=== PATIENT | male | born 1995 | race Caucasian/White ===

== ENCOUNTER 2018-09-20 10:52 | Inpatient (IN) | payer BC ==
--- NOTE | 2018-09-20 11:15 | ED ---
Psychiatric Complaint - HPI Summary HPI Summary: This patient is a 22 year old M referred to [facility] by his psychiatrist accompanied by family with a chief complaint of manic episodes that began approximately three days ago. The patient rates the pain 0/10 in severity. Symptoms aggravated by nothing. Symptoms alleviated by nothing. Patient reports difficulty sleeping, SI (without plan), and an out of body experience. - History Of Current Complaint Chief Complaint: EDMentalHealth Time Seen by Provider: 09/20/18 11:04 Hx Obtained From: Patient Onset/Duration: Sudden Onset, Lasting Days, Still Present Timing: Constant Severity Initially: Mild Severity Currently: Mild Character: Manic Aggravating Factor(s): Nothing Alleviating Factor(s): Nothing Associated Signs And Symptoms: Positive: Sleep Disturbance Related History: Positive For: Prior Psychiatric Issues Has Suicidal: Reports: Thoughts - Allergies/Home Medications Allergies/Adverse Reactions: Allergies Allergy/AdvReac Type Severity Reaction Status Date / Time No Known Allergies Allergy Verified 09/20/18 11:01 Home Medications: Home Medications LORazepam TAB(*) [Ativan 1 MG TAB (*)] 1 mg PO TID PRN 09/20/18 [History Confirmed 09/20/18] Lurasidone(*) [Latuda] 80 mg PO BEDTIME 09/20/18 [History Confirmed 09/20/18] Methylphenidate ER TAB* [Concerta ER TAB*] 36 mg PO DAILY 09/20/18 [History Confirmed 09/20/18] PARoxetine HCL TAB* [Paxil TAB*] 25 mg PO DAILY 09/20/18 [History Confirmed 05/29] PMH/Surg Hx/FS Hx/Imm Hx Previously Healthy: No Opthamlomology History: Denies: Hx Legally Blind EENT History: Denies: Hx Deafness Psychiatric History: Reports: Hx Depression Infectious Disease History: No Infectious Disease History: Denies: Traveled Outside the [place] in Last 30 Days - Family History Known Family History: Positive: Other - Depression. Anxiety - Social History Occupation: Unemployed Lives: With Family Alcohol Use: None Hx Substance Use: No Substance Use Type: Reports: None Hx Tobacco Use: No Smoking Status (MU): Never Smoked Tobacco Review of Systems Negative: Fever Psychological: Other - Positive maritza episodes, SI, difficulty sleeping, and " out of body" experience All Other Systems Reviewed And Are Negative: Yes Physical Exam - Summary Physical Exam Summary: VITAL SIGNS: Reviewed. GENERAL: Patient is a well-developed and nourished male who is lying comfortable in the stretcher. Patient is not in any acute respiratory distress. HEAD AND FACE: No signs of trauma. No ecchymosis, hematomas or skull depressions. No sinus tenderness. EYES: PERRLA, EOMI x 2, No injected conjunctiva, no nystagmus. EARS: Hearing grossly intact. Ear canals and tympanic membranes are within normal limits. MOUTH: Oropharynx within normal limits. NECK: Supple, trachea is midline, no adenopathy, no JVD, no carotid bruit, no c- spine tenderness, neck with full ROM. CHEST: Symmetric, no tenderness at palpation LUNGS: Clear to auscultation bilaterally. No wheezing or crackles. CVS: Regular rate and rhythm, S1 and S2 present, no murmurs or gallops appreciated. ABDOMEN: Soft, non-tender. No signs of distention. No rebound no guarding, and no masses palpated. Bowel sounds are normal. EXTREMITIES: FROM in all major joints, no edema, no cyanosis or clubbing. NEURO: Alert and oriented x 3. No acute neurological deficits. Speech is normal and follows commands. SKIN: Dry and warm PSYCH: Depressed, quiet. No homicidal thoughts or plan. No signs of psychosis or pressure speech. No tangential speech. Triage Information Reviewed: Yes Vital Signs On Initial Exam: Initial Vitals Temp Pulse Resp BP Pulse Ox 97.9 F 106 18 138/80 97 09/20/18 10:54 09/20/18 10:54 09/20/18 10:54 09/20/18 10:54 09/20/18 10:54 Vital Signs Reviewed: Yes Diagnostics - Vital Signs Vital Signs Temp Pulse Resp BP Pulse Ox 09/20/18 10:54 97.9 F 106 18 138/80 97 - Laboratory Result Diagrams: 09/20/18 10:33 09/20/18 10:33 Lab Statement: Any lab studies that have been ordered have been reviewed, and results considered in the medical decision making process. Course/Dx - Course Assessment/Plan: Blood work w/o a significant abnormality. He is medically cleared. He is awaiting for a MHE. Patient is hemodynamically stable and A+O x 3. Dr. Doyle from psychiatry assessed the patient and he recommends for the patient to be admitted to his services. Diagnosis depression. - Differential Dx/Clinical Impression Differential Diagnosis/HQI/PQRI: Positive: Acute Psychosis, Anxiety, Depression Provider Diagnosis: Depression Discharge - Sign-Out/Discharge Documenting (check all that apply): Patient Departure - Admit to [facility] Patient Received Moderate/Deep Sedation with Procedure: No - Discharge Plan Condition: Stable Disposition: ADMITTED TO [facility] - Billing Disposition and Condition Condition: STABLE Disposition: Admitted to [facility] - Attestation Statements Document Initiated by Shannanibe: Yes Documenting Scribe: Jennifer Cloud Provider For Whom Teressa is Documenting (Include Credential): Dr. Gary Carrington MD Scribe Attestation: Jennifer Galvan scribed for Dr. Gary Carrington MD on 09/20/18 at 2057. Scribe Documentation Reviewed: Yes Provider Attestation: The documentation as recorded by the Jennifer chaudhary accurately reflects the service I personally performed and the decisions made by me, Dr. Gary Carrington MD Status of Scribe Document: Viewed
[2018-09-20 11:39] LABS: Urine Appearance Clear; Urine Bilirubin Negative (Negative); Urine Blood Negative (Negative); Urine Color Yellow; Urine Glucose Negative (Negative); Urine Ketones Negative (Negative); Urine Nitrite Negative (Negative); Urine Protein Negative (Negative); Urine Specific Gravity 1.023 (1.010-1.030); Urine Urobilinogen Negative (Negative)
[2018-09-20 11:44] LABS: ABS Basophils 0.1 10^3/ul (0-0.2); ABS Eosinophils 0 10^3/ul (0-0.6); ABS Lymphocytes 1.8 10^3/ul (1.0-4.8); ABS Monocytes 0.6 10^3/ul (0-0.8); ABS Neutrophils 6.7 10^3/ul (1.5-7.7); ABS Nucleated RBC 0 10^3/ul; Eosinophil % 0.3 %; Hematocrit 45 % (42-52); Hemoglobin 15.6 g/dl (14.0-18.0); Lymphocyte % 19.9 %; Mean Corpuscular HGB Conc 35 g/dl (31-36); Mean Corpuscular Hemoglobin 28 pg (27-31); Mean Corpuscular Volume 81 fL (80-94); Mean Platelet Volume 7.9 fL (7.4-10.4); Nucleated Red Blood Cells % 0; Platelet Count 296 10^3/ul (150-450); Red Blood Count 5.55 10^6/ul (4.00-5.40); Red Cell Distribution Width 14 % (10.5-15); White Blood Count 9.2 10^3/ul (3.5-10.8)
[2018-09-20 11:57] LABS: Barbiturates Urine Screen None Detected (None Detect); Benzodiazepine Urine Screen None Detected (None Detect); Urine Cannabinoids Screen None Detected (None Detect)
[2018-09-20 12:01] LABS: ALT 42 U/L (7-52); AST 16 U/L (13-39); Albumin/Globulin Ratio 1.7 (1-3); Alkaline Phosphatase 80 U/L (34-104); Anion Gap 10 mmol/L (2-11); BUN/Creatinine Ratio 10.3 (8-20); Blood Urea Nitrogen 9 mg/dL (6-24); CO2 Carbon Dioxide 25 mmol/L (22-32); Calcium 9.9 mg/dL (8.6-10.3); Chloride 103 mmol/L (101-111); EGFR African American 130.4 (>60); EGFR Non-African American 107.8 (>60); Globulin 2.9 g/dL (2-4); Glucose 106 mg/dL (70-100); Sodium 138 mmol/L (135-145); Total Protein 7.9 g/dL (6.4-8.9)
[2018-09-20 12:34] LABS: Acetaminophen < 15 mcg/mL; Alcohol < 10 mg/dL (<10); Salicylate < 2.50 mg/dL (<30)
[2018-09-20 12:46] LABS: TSH (Thyroid Stimulating Horm) 0.64 mcIU/mL (0.34-5.60)
[2018-09-20] MEDS ORDERED: Al Hydrox/Mg Hydrox/Simet LIQ* 30 ML UDC PO PRN (19:54)
[2018-09-20] MEDS ORDERED: Acetaminophen TAB* 325 MG PO PRN (19:54)
[2018-09-21] MEDS: Vitamin THERAPEUTIC TAB PO SCH (09:39)
--- NOTE | 2018-09-21 11:49 | PN ---
[facility]: Group Therapy Note - Service Type Service Type: 17964 Group Psychotherapy - Cognitive Behavioral Group Therapy ( CBT):Patient was attentive and participatory in CBT programming this morning, and remained in good behavioral control. Patient expressed positive insights regarding relevant treatment interventions and goals.
--- NOTE | 2018-09-21 14:09 | HP ---
H&P (Free Text) History and Physical: Justification for admission: Immediate Safety. CC " I have not slept." The patient was brought to [facility] by self after the recommendation by his Psychiatrist Dr. Carter who was concerned that he might have possible leona. He said that he has not slept in 5 days. He reported that he was tried on many medications and had different reactions such as not sleeping, restlessness. He said this began about 3 weeks ago at what time he was started on Abilify and discontinued shortly after. He describes that over the last 2 weeks he felt that he had a 2 week long panic attack. He reported that he also stopped taking concerta and paxil a few days ago. He denied nausea , muscle stiffness or fever. He said I also have touretts where I will move my head and eyes. He denied access to firearms or stockpiles of medications. He reported adequate appetite. He reported having thoughts of suicide 2 days ago and remarked that he did not have a plan for ending his life. The patient currently denied suicidal and or homicidal ideation intent or plan. The patient denied auditory and/ or visual hallucinations. Bipolar Reported having many ideas at once. Reported having the decreased need to sleep for days. Reported having the decreased need to sleep for days. Denied increased talkativeness where no one can interrupt. He reported feeling irritable and feeling restless. He denied an increase in intensity in goal directed activities. He denied impulsive risky sexual encounters. Denied spending money recklessly , going on spending sprees wiping out savings. Denied impulsively traveling out of town or country, having super oleary, and unrealistic wealth or fame. MDD He reported feeling depressed. Denied having crying spells , feeling empty inside, feelings of hopelessness or worthless. Denied unintentional weight loss or appetite. Reported interruption of sleep or feeling tired throughout the day. He reported that when he is depressed he has a loss of energy or lack of motivation to complete tasks. He denied overwhelming feelings of guilt. Anxiety He reported having symptoms of anxiety such as having times where heart feels that it is beating out of chest , sweaty palms, or shallow breathing. Psychosis Does not endorse hearing things that other people do not hear or seeing things other people do not see. Denied feeling that TV is making references. Denied feeling that people are spying on him , following him , or reading his thoughts. Phobias: Patient denied having excessive fear of a particular thing or situation. Eating disorders: Patient denied having excessive eating habits or feelings of guilt after eating. Denied repeated episodes of self induced vomiting after eating. PTSD- Denied flashbacks, nightmares and avoidance of a prior traumatic event. PAST PSYCHIATRIC HISTORY: Prior Diagnosis : Tourettes Syndrome, ADHD, Major depressive Disorder History of past Psychiatric Hospitalizations: At age 11 History of past suicide/homicide attempts : No past suicide attempts. He denied past homicidal incidents. Outpatient follow-up: Dr. Carter Psychiatrist Medications: Past trials of medications include latuda, abilify, effexor, haldol, zoloft, paxil, rexulti, cymbalta, concerta. FAMILY HISTORY: - Suicide: Denied suicide in the family - Mental illness: Grandfather and Cousin history of Depression - Substance abuse: Sister alcohol abuse SUBSTANCE ABUSE HISTORY: She denied using tobacco, heroin and cocaine other illicit substances. She denied abusing pills not prescribed to him. She denied past Substance abuse treatment. SOCIAL HISTORY: - Childhood: He was born and raised in [place], [place]. Lives in Single and no children. Works at [employer]. Lives with Mother Vicky Aguilera in [place]. Denied legal or history. No history of trauma or abuse. PAST MEDICAL HISTORY: Denied heart disease, Diabetes, cancer and/ or other medical conditions. Denied sudden in family. - Allergies: Denied drug or other allergies. Physical Exam: Please see ED note Mental Status Exam on Admission APPEARANCE : 22 year old who appears stated age. Patient is not malodourous, and appears to have fair hygiene and grooming. BEHAVIOR: Cooperative , calm EYE CONTACT: Fair PSYCHOMOTOR ACTIVITY: No psychomotor agitation or retardation. MOVEMENTS: No abnormal movements observed. SPEECH : Normal rate, rhythm, volume and tone. MOOD : "anxious " AFFECT : Constricted THOUGHT PROCESS: formulated and organized in a logical, linear goal directed manner. No flight of ideas THOUGHT CONTENT: no delusions, preoccupations, obsessions, phobias or preoccupations. PERCEPTION: No current auditory or visual hallucinations. Doesnt appear to be responding to internal cues. No evidence of depersonalization , de-realization, or illusions SUICIDALITY Denied suicidal ideation, intent or plan. HOMICIDALITY Denied homicidal ideation, intent or plan. ORIENTATION: Oriented to self, location, and time. Diagnosis on Admission: Tourettes Syndrome, ADHD, Major depressive Disorder Assessment: 22year old with history of Tourettes Syndrome, ADHD, Major depressive Disorder came to the hospital and was admitted to the BSU at [facility]. Plan # Justification for Admission: For immediate safety per outlined in the [facility] Code. #Patient evaluated in ED and was determined by the emergency room Physician to be medically stable for admission to the BSU. # Voluntary admission. The patient requires inpatient admission at this time to assure safety, receive treatment and work toward stabilization. # Labs ordered: CBC, CMP, UDS, TSH, HbA1c, TSH, #Admit to BSU, Q15 minute observation. Start regular diet. Encourage participation in activities on the milieu. # Obtain collateral information from Psychiatrist Dr. Carter [phone] and Mother Vicky Aguilera [phone]. #Start Risperdal 1mg at bedtime for tics. #Start Ambien 5mg at bedtime for sleep #Start concerta 27mg daily for ADHD #MMPI # Will consider starting mood stabilizer once more collateral is obtained, a diagnosis is more transparent, and response to other treatment is observed. # Collaboration with Social Work to work toward discharge planning. #Collateral from Psychiatrist that revealed his history of medications and concern that he may have bipolar I disorder. He has never been on a mood stabilizer. #Goals before discharge include: Increase sleep and stabilize mood #EKG unremarkable Patient has Irritable mood requiring 3/4 components needed to meet Bipolar I disorder. Will obtain further history to confirm or refute diagnosis. The risks, benefits, and alternative treatment options were discussed as well as of the risks of refusing treatment. After this discussion and an acknowledgement of this understanding was made. A risk benefit assessment of treatment was considered and discussed with the patient. When comparing the risks of treatment with the dangers of current clinical presentation. The benefits of treatment outweigh the treatment risks at this time. Risks of behavioral changes, Serotonin syndrome, metabolic risks and NMS were among some of the risks discussed.
[2018-09-21] MEDS: Zolpidem TAB* 5 MG PO SCH (20:51)
[2018-09-21] MEDS: risperiDONE TAB* 1 MG PO SCH (20:51)
[2018-09-21] MEDS: clonazePAM TAB(*) 0.5 MG PO PRN (23:09)
[2018-09-22] MEDS: Vitamin THERAPEUTIC TAB PO SCH (08:44)
[2018-09-22] MEDS: Methylphenidate ER 27 MG TAB PO SCH (08:44)
--- NOTE | 2018-09-22 09:03 | PN ---
Subjective - Subjective Date of Service: 09/22/18 Service Type: 29652 Hosp care 25 min moderate complexity Subjective: Nursing Report: Patient was visible on unit, no chemical restraints. Slept overnight without incident. Attending group activities. CC: "I did get some sleep overnight Patient was seen and evaluated in the day room. He was observed in the day room eating breakfast. The patient reported he feels safe on the unit and is interacting with peers. He reported having an adequate appetite and sleep around 5 hours. The patient reports attending and participating in day groups. Per nursing no behavioral issues or overnight events reported. Patient reported that he is tolerating medications without side effects. He denied suicidal ideation, intent or plan. He denied homicidal ideation intent or plan. He denied auditory and or visual hallucinations. Contact was made with his mother who stated he has not been sleeping since being off medications, having crying spells and feeling irritable. She reported that paxil and zoloft worked best for him in the past for anxiety and depression. She reported that he did not have a good response to abilify. Objective - Appearance Dysmorphic Features: No Hygiene: Normal Grooming: Fairly Well Kept - Behavior Psychomotor Activities: Normal Exhibits Abnormal Movement: No - Attitude and Relatedness Attitude and Relatedness: Cooperative Eye Contact: Fair - Speech Quality: Unpressured Latencies: Long Quantity: Appropriate - Mood Patient's Decription of Mood: "Fine" - Affect Observed Affect: Constricted Affect Consistent with: Euthymia - Thought Process Patient's Thought Process: Goal Directed Thought Content: No Passive Wish, No Suicidal Planning, No Homicidal Ideation, No Paranoid Ideation - Sensorium Experiencing Hallucinations: No, Sensorium is Clear Type of Hallucinations: Visual: No, Auditory: No, Command: No - Level of Consciousness Level of Consciousness: Alert Orientation: Yes Intact, Yes Orientated to Time, Yes Orientated to Place, Yes Orientated to Person - Impulse Control Impulse Control: Poor - Insight and Judgement Insight and Judgement: Fair - Group Participation Particating in Group Activities: Yes - Medication Management Medication Management Adherence: Yes Plan - Plan Treatment Plan: Name: GARRISON ARMSTRONG Birthdate: 1995 [id number] # Voluntary admission. The patient requires inpatient admission at this time to assure safety, receive treatment and work toward stabilization. #Q30 minute observation with staff pass #Continue Risperdal 1mg at bedtime for tics. #Restart Paxil 10mg po daily #Continue Ambien 5mg at bedtime for sleep #Continue concerta 27mg daily for ADHD #klonopin 0.5mg PRN #Start guanfacine 1mg at 2100 #MMPI completed # Collaboration with Social Work to work toward discharge planning. Tentative Discharge Friday. # Hypomania and leona considered in differential and criteria is not fully met. Past medication trials include latuda, abilify, effexor, haldol, zoloft, paxil, rexulti, celexa, cymbalta, concerta. #Goals before discharge include: Increase sleep and stabilize mood. Continued Medication Management: Start Medication Medications: Current Medications Acetaminophen (Tylenol Tab*) 650 mg PO Q4H PRN PRN Reason: PAIN or TEMP > 101 F Al Hydrox/Mg Hydrox/Simethicone (Maalox Plus*) 30 ml PO Q4H PRN PRN Reason: INDIGESTION Clonazepam (Klonopin Tab(*)) 0.5 mg PO BID PRN PRN Reason: ANXIETY Last Admin: 09/21/18 23:09 Dose: 0.5 mg Methylphenidate HCl (Concerta) 27 mg PO DAILY [facility] Last Admin: 09/22/18 08:44 Dose: 27 mg Multivitamins (Theragran Tab*) 1 tab PO DAILY [facility] Last Admin: 09/22/18 08:44 Dose: 1 tab Risperidone (Risperdal*) 1 mg PO BEDTIME [facility] Last Admin: 09/21/18 20:51 Dose: 1 mg Zolpidem Tartrate (Ambien Tab*) 5 mg PO BEDTIME [facility] Last Admin: 09/21/18 20:51 Dose: 5 mg - Discharge Plan Discharge Plan: Inpatient Hospitalization
[2018-09-22] MEDS ORDERED: GUANFACINE 2 MG PO SCH ×2 (11:00→21:00)
[2018-09-22 12:32] LABS: HDL Cholesterol 40.2 mg/dL
[2018-09-22] MEDS: PARoxetine HCL TAB* 10 MG PO SCH (12:40)
[2018-09-22] MEDS: Zolpidem TAB* 5 MG PO SCH (20:47)
[2018-09-22] MEDS: risperiDONE TAB* 1 MG PO SCH (20:47)
[2018-09-22] MEDS ORDERED: Guanfacine ER * (NF) 2 MG TAB.ER.24H PO SCH (21:00)
[2018-09-22] MEDS ORDERED: guanFACINE TAB* 1 MG PO SCH (21:00)
[2018-09-22] MEDS: clonazePAM TAB(*) 0.5 MG PO PRN (23:45)
[2018-09-23] MEDS: PARoxetine HCL TAB* 10 MG PO SCH (09:58)
[2018-09-23] MEDS: Vitamin THERAPEUTIC TAB PO SCH (09:58)
[2018-09-23] MEDS: Methylphenidate ER 27 MG TAB PO SCH (09:59)
--- NOTE | 2018-09-23 12:28 | PN ---
Subjective - Subjective Date of Service: 09/23/18 Service Type: 19114 Hosp care 25 min moderate complexity Subjective: Nursing Report: Patient was visible on unit, no chemical restraints. Slept overnight without incident. Attending group activities. CC: "I am anxious Patient was seen and evaluated in his room. The patient reported he feels safe on the unit and is interacting with peers. He reported having an adequate appetite and sleep some overnight. The patient said that he doesnt want risperdal because he did not tolerate it when he was younger. The patient reports attending and participating in some day groups. Per nursing no behavioral issues or overnight events reported. Patient reported that he responds well to klonopin. He denied suicidal ideation, intent or plan. He denied homicidal ideation intent or plan. He denied auditory and or visual hallucinations. Patient reports anxiety around nighttime. Objective - Appearance Appearance: Obese Dysmorphic Features: No Hygiene: Normal Grooming: Well Kept - Behavior Psychomotor Activities: Normal Exhibits Abnormal Movement: No - Attitude and Relatedness Attitude and Relatedness: Cooperative Eye Contact: Fair - Speech Quality: Unpressured Latencies: Normal Quantity: Appropriate - Mood Patient's Decription of Mood: "Good" - Affect Observed Affect: Constricted Affect Consistent with: Dysphoria - Thought Process Patient's Thought Process: Goal Directed Thought Content: No Passive Wish, No Suicidal Planning, No Homicidal Ideation, No Paranoid Ideation - Sensorium Experiencing Hallucinations: No, Sensorium is Clear Type of Hallucinations: Visual: No, Auditory: No, Command: No - Level of Consciousness Level of Consciousness: Alert Orientation: Yes Intact, Yes Orientated to Time, Yes Orientated to Place, Yes Orientated to Person - Impulse Control Impulse Control: Intact - Insight and Judgement Insight and Judgement: Fair - Group Participation Particating in Group Activities: Yes - Medication Management Medication Management Adherence: Yes Assessment - Assessment Clinical Impression: 22year old with history of Tourettes Syndrome, ADHD, Major depressive Disorder came to the hospital and was admitted to the BSU at [facility]. Main complaints include sleep and anxiety. Plan - Plan Treatment Plan: Name: GARRISON ARMSTRONG Birthdate: 1995 [id number] # Voluntary admission. The patient requires inpatient admission at this time to assure safety, receive treatment and work toward stabilization. #Q30 minute observation with staff pass #D/C Risperdal #Increase Paxil 30mg po daily #D/C Ambien #Increase concerta 36mg daily for ADHD #Start klonopin 1mg QHS #Start propranolol 10mg BID #MMPI completed indicating more depression parameters # Collaboration with Social Work to work toward discharge planning. Tentative Discharge Friday. #EKG unremarkable #Goals before discharge include: Increase sleep and decrease anxiety Vital Signs Temp Pulse Resp BP Pulse Ox 98.6 F 96 16 124/74 100 09/23/18 07:43 09/23/18 07:43 09/23/18 12:51 09/23/18 07:43 09/23/18 07:43 Sodium 138 mmol/L (135-145) 09/20/18 10:33 Potassium 4.0 mmol/L (3.5-5.0) 09/20/18 10:33 BUN 9 mg/dL (6-24) 09/20/18 10:33 Creatinine 0.87 mg/dL (0.67-1.17) 09/20/18 10:33 Hemoglobin A1c 5.0 % (4.0-5.6) 09/22/18 11:56 Calcium 9.9 mg/dL (8.6-10.3) 09/20/18 10:33 AST 16 U/L (13-39) 09/20/18 10:33 ALT 42 U/L (7-52) 09/20/18 10:33 Triglycerides 150 mg/dL 09/22/18 11:56 Cholesterol 191 mg/dL 09/22/18 11:56 LDL Cholesterol 121 mg/dL 09/22/18 11:56 Continued Medication Management: Different Medication Medications: Current Medications Acetaminophen (Tylenol Tab*) 650 mg PO Q4H PRN PRN Reason: PAIN or TEMP > 101 F Al Hydrox/Mg Hydrox/Simethicone (Maalox Plus*) 30 ml PO Q4H PRN PRN Reason: INDIGESTION Clonazepam (Klonopin Tab(*)) 0.5 mg PO BID PRN PRN Reason: ANXIETY Last Admin: 09/22/18 23:45 Dose: 0.5 mg Guanfacine HCl (Tenex Tab*) 1 mg PO BEDTIME [facility] Last Admin: 09/22/18 20:47 Dose: 1 mg Methylphenidate HCl (Concerta) 27 mg PO DAILY [facility] Last Admin: 09/23/18 09:59 Dose: 27 mg Multivitamins (Theragran Tab*) 1 tab PO DAILY [facility] Last Admin: 09/23/18 09:58 Dose: 1 tab Paroxetine HCl (Paxil Tab*) 10 mg PO DAILY [facility] Last Admin: 09/23/18 09:58 Dose: 10 mg Risperidone (Risperdal*) 1 mg PO BEDTIME [facility] Last Admin: 09/22/18 20:47 Dose: 1 mg Zolpidem Tartrate (Ambien Tab*) 5 mg PO BEDTIME [facility] Last Admin: 09/22/18 20:47 Dose: 5 mg - Discharge Plan Discharge Plan: Inpatient Hospitalization
[2018-09-23] MEDS ORDERED: PARoxetine HCL TAB* 20 MG PO ONE (12:45)
[2018-09-23] MEDS: Propranolol TAB* 10 MG PO SCH ×2 (14:40→20:57)
--- NOTE | 2018-09-23 16:22 | PN ---
BSU: Group Therapy Note - Service Type Service Type: 18014 Group Psychotherapy - Group Participation Patient Participating in Group: Yes Level of Group Participation: Spontaneously Participate Relatedness to Group: Other - Additional Group Comments Group Comments: Jairo was pleasant and participatory. He engaged well in the group and understood the material well.
[2018-09-23] MEDS: clonazePAM TAB(*) 1 MG PO SCH (20:57)
[2018-09-24] MEDS: Methylphenidate ER TAB* 18 MG PO SCH (08:47)
[2018-09-24] MEDS: Propranolol TAB* 10 MG PO SCH ×2 (08:47→20:27)
[2018-09-24] MEDS: PARoxetine HCL TAB* 10 MG PO SCH (08:47)
[2018-09-24] MEDS: Vitamin THERAPEUTIC TAB PO SCH (08:47)
--- NOTE | 2018-09-24 10:34 | PN ---
Subjective - Subjective Date of Service: 09/24/18 Service Type: 00222 Hosp care 35 min high complexity Subjective: Nursing Report: Patient was visible on unit, no chemical restraints. Slept overnight without incident. Attending group activities. CC: "I slept well overnight Patient was seen and evaluated in the comfort room. The patient reported he feels safe on the unit and is interacting with peers. He reported no anxiety overnight. He reported having an adequate appetite and sleep. The patient reports attending and participating in some day groups. Per nursing no behavioral issues or overnight events reported. He denied suicidal ideation, intent or plan. He denied homicidal ideation intent or plan. He denied auditory and or visual hallucinations. Patients goals include going back to school for computer science. He denied past trauma and endorsed having a good childhood. Objective - Appearance Dysmorphic Features: No Hygiene: Normal Grooming: Fairly Well Kept - Behavior Psychomotor Activities: Normal Exhibits Abnormal Movement: No - Attitude and Relatedness Attitude and Relatedness: Appropriate Eye Contact: Fair - Speech Quality: Unpressured Latencies: Normal Quantity: Appropriate - Mood Patient's Decription of Mood: "Okay" - Affect Observed Affect: Non-labile Affect Consistent with: Euthymia - Thought Process Patient's Thought Process: Goal Directed Thought Content: No Passive Wish, No Suicidal Planning, No Homicidal Ideation, No Paranoid Ideation - Sensorium Experiencing Hallucinations: No, Sensorium is Clear Type of Hallucinations: Visual: No, Auditory: No, Command: No - Level of Consciousness Level of Consciousness: Alert Orientation: Yes Intact, Yes Orientated to Time, Yes Orientated to Place, Yes Orientated to Person - Impulse Control Impulse Control: Tenuous - Insight and Judgement Insight and Judgement: Fair - Group Participation Particating in Group Activities: Yes - Medication Management Medication Management Adherence: Yes Assessment - Assessment Merits Inpatient Hospitalization: For Stabilization Clinical Impression: 22year old with history of Tourettes Syndrome, ADHD, Major depressive Disorder came to the hospital and was admitted to the BSU at [facility]. Main complaints include sleep and anxiety which have shown improvement. Plan - Plan Treatment Plan: Name: GARRISON ARMSTRONG Birthdate: 1995 [id number] # Voluntary admission. The patient requires inpatient admission at this time to assure safety, receive treatment and work toward stabilization. #Q30 minute observation with staff pass #Continue Paxil 30mg po daily #Continue concerta 36mg daily for ADHD #Continue klonopin 1mg QHS #Continue propranolol 10mg BID #MMPI completed indicating more depression parameters # Collaboration with Social Work to work toward discharge planning. Tentative Discharge Friday. #Goals before discharge include: Increase sleep and decrease anxiety Vital Signs Temp Pulse Resp BP Pulse Ox 98.2 F 81 17 127/71 99 09/24/18 07:10 09/24/18 07:10 09/24/18 07:10 09/24/18 07:10 09/24/18 07:10 Laboratory Tests 09/20/18 09/20/18 09/20/18 10:33 10:33 11:20 WBC 9.2 RBC 5.55 H Hgb 15.6 Hct 45 MCV 81 MCH 28 MCHC 35 RDW 14 Plt Count 296 MPV 7.9 Neut % (Auto) 72.6 Lymph % (Auto) 19.9 Petroleum % (Auto) 6.6 Eos % (Auto) 0.3 Baso % (Auto) 0.6 Absolute Neuts (auto) 6.7 Absolute Lymphs (auto) 1.8 Absolute Monos (auto) 0.6 Absolute Eos (auto) 0 Absolute Basos (auto) 0.1 Absolute Nucleated RBC 0 Nucleated RBC % 0 Sodium 138 Potassium 4.0 Chloride 103 Carbon Dioxide 25 Anion Gap 10 BUN 9 Creatinine 0.87 Est GFR ( Amer) 130.4 Est GFR (Non-Af Amer) 107.8 BUN/Creatinine Ratio 10.3 Glucose 106 H Hemoglobin A1c Calcium 9.9 Total Bilirubin 0.70 AST 16 ALT 42 Alkaline Phosphatase 80 Total Protein 7.9 Albumin 5.0 Globulin 2.9 Albumin/Globulin Ratio 1.7 Triglycerides Cholesterol LDL Cholesterol HDL Cholesterol TSH 0.64 Urine Color Yellow Urine Appearance Clear Urine pH 6.0 Ur Specific [place] 1.023 Urine Protein Negative Urine Ketones Negative Urine Blood Negative Urine Nitrate Negative Urine Bilirubin Negative Urine Urobilinogen Negative Ur Leukocyte Esterase Negative Urine Glucose Negative Salicylates < 2.50 Urine Opiates Screen Acetaminophen < 15 Ur Barbiturates Screen Ur Phencyclidine Scrn Ur Amphetamines Screen U Benzodiazepines Scrn Urine Cocaine Screen U Cannabinoids Screen Serum Alcohol < 10 09/20/18 09/22/18 09/22/18 11:20 11:56 11:56 WBC RBC Hgb Hct MCV MCH MCHC RDW Plt Count MPV Neut % (Auto) Lymph % (Auto) Petroleum % (Auto) Eos % (Auto) Baso % (Auto) Absolute Neuts (auto) Absolute Lymphs (auto) Absolute Monos (auto) Absolute Eos (auto) Absolute Basos (auto) Absolute Nucleated RBC Nucleated RBC % Sodium Potassium Chloride Carbon Dioxide Anion Gap BUN Creatinine Est GFR ( Amer) Est GFR (Non-Af Amer) BUN/Creatinine Ratio Glucose Hemoglobin A1c 5.0 Calcium Total Bilirubin AST ALT Alkaline Phosphatase Total Protein Albumin Globulin Albumin/Globulin Ratio Triglycerides 150 Cholesterol 191 LDL Cholesterol 121 HDL Cholesterol 40.2 TSH Urine Color Urine Appearance Urine pH Ur Specific [place] Urine Protein Urine Ketones Urine Blood Urine Nitrate Urine Bilirubin Urine Urobilinogen Ur Leukocyte Esterase Urine Glucose Salicylates Urine Opiates Screen None detected Acetaminophen Ur Barbiturates Screen None detected Ur Phencyclidine Scrn None detected Ur Amphetamines Screen None detected U Benzodiazepines Scrn None detected Urine Cocaine Screen None detected U Cannabinoids Screen None detected Serum Alcohol Continued Medication Management: Start Medication Medications: Current Medications Acetaminophen (Tylenol Tab*) 650 mg PO Q4H PRN PRN Reason: PAIN or TEMP > 101 F Al Hydrox/Mg Hydrox/Simethicone (Maalox Plus*) 30 ml PO Q4H PRN PRN Reason: INDIGESTION Clonazepam (Klonopin Tab(*)) 1 mg PO BEDTIME [facility] Last Admin: 09/23/18 20:57 Dose: 1 mg Methylphenidate HCl (Concerta Er Tab*) 36 mg PO DAILY [facility] Last Admin: 09/24/18 08:47 Dose: 36 mg Multivitamins (Theragran Tab*) 1 tab PO DAILY [facility] Last Admin: 09/24/18 08:47 Dose: 1 tab Paroxetine HCl (Paxil Tab*) 30 mg PO DAILY [facility] Last Admin: 09/24/18 08:47 Dose: 30 mg Propranolol HCl (Inderal Tab*) 10 mg PO BID [facility] Last Admin: 09/24/18 08:47 Dose: 10 mg - Discharge Plan Discharge Plan: Inpatient Hospitalization
[2018-09-24] MEDS: clonazePAM TAB(*) 1 MG PO SCH (20:26)
[2018-09-25 09:44] VITALS: BP 127/71
[2018-09-25] MEDS: Propranolol TAB* 10 MG PO SCH (09:45)
[2018-09-25] MEDS: Vitamin THERAPEUTIC TAB PO SCH (09:45)
[2018-09-25] MEDS: Methylphenidate ER TAB* 18 MG PO SCH (09:45)
[2018-09-25] MEDS: PARoxetine HCL TAB* 10 MG PO SCH (09:45)
--- NOTE | 2018-09-25 10:32 | DS ---
Subjective - Subjective Service Types: 44810 [facility] Day Mgmt complex over 30 min Discharge Date: 09/25/18 Subjective: Nursing Report: Patient was visible on unit, no chemical restraints. Slept overnight without incident. Attending group activities. CC: "I am a lot better Patient was seen and evaluated in the common room. The patient reported he feels safe on the unit and is interacting with peers. He reported no anxiety overnight and feels that his sleep is much better. He reported having an adequate appetite. The patient reports attending and participating in some day groups. Per staff report, no behavioral issues or overnight events reported. He denied suicidal ideation, intent or plan. He denied homicidal ideation intent or plan. He denied auditory and or visual hallucinations. Patient looks forward to going back to work and future plans to go to school. Justification for Admission: For immediate safety per outlined in the [place] Mental Hygiene Code. CC " I have not slept." The patient was brought to [facility] by self after the recommendation by his Psychiatrist Dr. Carter who was concerned that he might have possible leona. He said that he has not slept in 5 days. He reported that he was tried on many medications and had different reactions such as not sleeping, restlessness. He said this began about 3 weeks ago at what time he was started on Abilify and discontinued shortly after. He describes that over the last 2 weeks he felt that he had a 2 week long panic attack. He reported that he also stopped taking concerta and paxil a few days ago. He denied nausea , muscle stiffness or fever. He said I also have touretts where I will move my head and eyes. He denied access to firearms or stockpiles of medications. He reported adequate appetite. He reported having thoughts of suicide 2 days ago and remarked that he did not have a plan for ending his life. The patient currently denied suicidal and or homicidal ideation intent or plan. The patient denied auditory and/ or visual hallucinations. Bipolar Reported having many ideas at once. Reported having the decreased need to sleep for days. Reported having the decreased need to sleep for days. Denied increased talkativeness where no one can interrupt. He reported feeling irritable and feeling restless. He denied an increase in intensity in goal directed activities. He denied impulsive risky sexual encounters. Denied spending money recklessly , going on spending sprees wiping out savings. Denied impulsively traveling out of town or country, having super oleary, and unrealistic wealth or fame. MDD He reported feeling depressed. Denied having crying spells , feeling empty inside, feelings of hopelessness or worthless. Denied unintentional weight loss or appetite. Reported interruption of sleep or feeling tired throughout the day. He reported that when he is depressed he has a loss of energy or lack of motivation to complete tasks. He denied overwhelming feelings of guilt. Anxiety He reported having symptoms of anxiety such as having times where heart feels that it is beating out of chest , sweaty palms, or shallow breathing. Psychosis Does not endorse hearing things that other people do not hear or seeing things other people do not see. Denied feeling that TV is making references. Denied feeling that people are spying on him , following him , or reading his thoughts. Phobias: Patient denied having excessive fear of a particular thing or situation. Eating disorders: Patient denied having excessive eating habits or feelings of guilt after eating. Denied repeated episodes of self induced vomiting after eating. PTSD- Denied flashbacks, nightmares and avoidance of a prior traumatic event. PAST PSYCHIATRIC HISTORY: Prior Diagnosis : Tourettes Syndrome, ADHD, Major depressive Disorder History of past Psychiatric Hospitalizations: At age 11 History of past suicide/homicide attempts : No past suicide attempts. He denied past homicidal incidents. Outpatient follow-up: Dr. Carter Psychiatrist Medications: Past trials of medications include latuda, abilify, effexor, haldol, zoloft, paxil, rexulti, cymbalta, concerta. FAMILY HISTORY: - Suicide: Denied suicide in the family - Mental illness: Grandfather and Cousin history of Depression - Substance abuse: Sister alcohol abuse SUBSTANCE ABUSE HISTORY: She denied using tobacco, heroin and cocaine other illicit substances. She denied abusing pills not prescribed to him. She denied past Substance abuse treatment. SOCIAL HISTORY: - Childhood: He was born and raised in [place], [place]. Lives in Single and no children. Works at [employer]. Lives with Mother Vicky Aguilera [phone] in [place]. Denied legal or history. No history of trauma or abuse. PAST MEDICAL HISTORY: Denied heart disease, Diabetes, cancer and/ or other medical conditions. Denied sudden in family. - Allergies: Denied drug or other allergies. Physical Exam: Please see ED note Mental Status Exam on Admission APPEARANCE : 22 year old who appears stated age. Patient is not malodourous, and appears to have fair hygiene and grooming. BEHAVIOR: Cooperative , calm EYE CONTACT: Fair PSYCHOMOTOR ACTIVITY: No psychomotor agitation or retardation. MOVEMENTS: No abnormal movements observed. SPEECH : Normal rate, rhythm, volume and tone. MOOD : "anxious " AFFECT : Constricted THOUGHT PROCESS: formulated and organized in a logical, linear goal directed manner. No flight of ideas THOUGHT CONTENT: no delusions, preoccupations, obsessions, phobias or preoccupations. PERCEPTION: No current auditory or visual hallucinations. Doesnt appear to be responding to internal cues. No evidence of depersonalization , de-realization, or illusions SUICIDALITY Denied suicidal ideation, intent or plan. HOMICIDALITY Denied homicidal ideation, intent or plan. ORIENTATION: Oriented to self, location, and time. Assessment: 22year old with history of Tourettes Syndrome, ADHD, Major depressive Disorder came to the hospital and was admitted to the BSU at [facility]. Diagnosis on Admission: Tourettes Syndrome, ADHD, Major depressive Disorder Diagnosis on Discharge: Tourettes Syndrome, ADHD, Panic disorder, Major Depressive Disorder currently in remission. Condition at the time of discharge: At the time of discharge patient showed improvement of sleep and appetite. The patient was not a danger to self or others. The patient denied suicidal ideations , intent or plans. The patient denied homicidal targets, ideations, intents or plans. This patient participated in psychosocial rehabilitation and gained some insight into problems. The patient gained insight into mental illness, triggers, and treatment. The patient took medication as prescribed. The patient denied side effects of medication and objective signs of side effects were not evident. Therapy Resources were offered to the patient. Patient was given a supply of prescriptions at the time of discharge. This patient will follow up with the follow up arrangements that were discussed and put in place. Patient was asked to keep appointments as scheduled, take medication as prescribed, have routine follow up care with their primary care physician and refrain from any use of alcohol or drugs. Objective - Appearance Appearance: Healthy Appearing Dysmorphic Features: No Hygiene: Normal Grooming: Well Kept - Behavior Psychomotor Activities: Normal Exhibits Abnormal Movement: No - Attitude and Relatedness Attitude and Relatedness: Cooperative Eye Contact: Good - Speech Quality: Unpressured Latencies: Normal Quantity: Appropriate - Mood Patient's Decription of Mood: "Good" - Affect Observed Affect: Non-labile - Thought Process Patient's Thought Process: Goal Directed Thought Content: No Passive Wish, No Suicidal Planning, No Homicidal Ideation, No Paranoid Ideation - Sensorium Experiencing Hallucinations: No, Sensorium is Clear Type of Hallucinations: Visual: No, Auditory: No, Command: No - Level of Consciousness Level of Consciousness: Alert Orientation: Yes Intact, Yes Orientated to Time, Yes Orientated to Place, Yes Orientated to Person - Impulse Control Impulse Control: Intact - Insight and Judgement Insight and Judgement: Good - Group Participation Particating in Group Activities: Yes - Medication Management Medication Management Adherence: Yes Treatment Course & Assessment Clinical Course & Impression: Hospital course part A and assessment: 22year old with history of Tourettes Syndrome, ADHD, Major depressive Disorder came to the hospital and was admitted to the BSU at [facility] on recommendation of Psychiatrist who suggested he has bipolar disorder. Hospital course part B: Obtain collateral information from Psychiatrist Dr. Carter [phone] and Mother Vicky Aguilera [phone] was obtained and their history was helpful in treatment options and response to prior treatment. He was start Risperdal 1mg at bedtime for tics and did not tolerate well and this was discontinued. He reported that tics did not cause him distress and sleep was more of a concern. He was started on Ambien 5mg at bedtime for sleep and was discontinued and started on klonopin 1mg at night. He was started on propanolol 10mg BID for restlessness and resumed on his home medication of concerta 36 mg daily for ADHD. MMPI was completed and suggestive of depression. Patient resumed on paxil 30mg daily. Patient did not meet full criteria for bipolar disorder so mood stabilizer was not started. The last 2 days before discharge the patient reported improved sleep and mood. He was future oriented. Family meeting took place before discharge and mother was present and had no reservations or safety concerns for him being discharged. She stated that he looks much better and happy to see that he was able to sleep. This was a Voluntary admission. Labs ordered: CBC, CMP, UDS, TSH, HbA1c, TSH, lipid profile, UA, UDS. and lab results were unremarkable. EKG results were normal. AIMS results were insignificant and patient was not discharged on anti-psychotic. The patient was admitted to the adult behavioral unit and placed on 15 minute check for safety and later q30 min and staff pass and no behavioral issues were noted. The patient did well on the unit and went to groups. Interacted with peers had adequate sleep and regular appetite. Tolerated medication changes . Group therapy and services were offered. The risks, benefits, and alternative treatment options were discussed as well as of the risks of refusing treatment. Treatment associated risks discussed . After this discussion and an acknowledgement of this understanding , made the decision for the current type of treatment. Follow up care appointments were put in place. KNIFE CHANGER was checked no indications of prescription abuse or diversion were present. Patient advised of the lethality and dangerousness of combining medications with pain medications and/ or with alcohol and acknowledged this understanding. He acknowledged that klonopin has additive qualities and is for short term use. The patient was advised of the 24 hour / 7 days a week availability of the emergency room and to call 911 in the event of becoming suicidal and/ or homicidal and for all other emergencies. The patient was informed of the contact information for [facility], Suicide Prevention and Crisis Services, National Suicide Prevention Lifeline, [facility], Alcoholics Anonymous, and [facility]. Patient is not currently suicidal and doesnt have a plan for suicide. He is not of older age has no history of service, Is not currently having feelings of hopelessness, no prior history of suicide attempts, not in occupation of social isolation, doesnt have multiple physical illnesses, no adverse childhood experience, no family history of suicide, no Access to firearms. no Command hallucinations, and no substance abuse, Vital Signs Temp Pulse Resp BP Pulse Ox 97.7 F 74 16 127/71 98 09/25/18 08:08 09/25/18 08:08 09/25/18 08:08 09/25/18 08:08 09/25/18 08:08 Sodium 138 mmol/L (135-145) 09/20/18 10:33 Potassium 4.0 mmol/L (3.5-5.0) 09/20/18 10:33 BUN 9 mg/dL (6-24) 09/20/18 10:33 Creatinine 0.87 mg/dL (0.67-1.17) 09/20/18 10:33 Hemoglobin A1c 5.0 % (4.0-5.6) 09/22/18 11:56 Calcium 9.9 mg/dL (8.6-10.3) 09/20/18 10:33 AST 16 U/L (13-39) 09/20/18 10:33 ALT 42 U/L (7-52) 09/20/18 10:33 Triglycerides 150 mg/dL 09/22/18 11:56 Cholesterol 191 mg/dL 09/22/18 11:56 LDL Cholesterol 121 mg/dL 09/22/18 11:56 Merits Inpatient Hospitalization: No Clear for Discharge: Adequate Clinical Respons Discharge Planning - Discharge Planning Discharge Plan: Outpatient Follow Up Outpatient Program: Private Clinician(s) Recommendations for Continuing Care: Medication Management Medications: Current Medications Acetaminophen (Tylenol Tab*) 650 mg PO Q4H PRN PRN Reason: PAIN or TEMP > 101 F Al Hydrox/Mg Hydrox/Simethicone (Maalox Plus*) 30 ml PO Q4H PRN PRN Reason: INDIGESTION Clonazepam (Klonopin Tab(*)) 1 mg PO BEDTIME [facility] Last Admin: 09/24/18 20:26 Dose: 1 mg Methylphenidate HCl (Concerta Er Tab*) 36 mg PO DAILY [facility] Last Admin: 09/25/18 09:45 Dose: 36 mg Multivitamins (Theragran Tab*) 1 tab PO DAILY [facility] Last Admin: 09/25/18 09:45 Dose: 1 tab Paroxetine HCl (Paxil Tab*) 30 mg PO DAILY [facility] Last Admin: 09/25/18 09:45 Dose: 30 mg Propranolol HCl (Inderal Tab*) 10 mg PO BID [facility] Last Admin: 09/25/18 09:45 Dose: 10 mg Discharge Planning: Prescriptions provided for discharge [x] Yes [] No Follow up care details as per social work arrangements. Patient response to discharge plan: [] eager for discharge [x] agreeable with discharge plan [] ambivalent about discharge [] disagrees with discharge today
--- NOTE | 2018-09-25 14:36 | CONS ---
PSYCHOLOGICAL REPORT: DATE OF CONSULT: 09/23/18 PROCEDURE CODE: [id number] REASON FOR REFERRAL: Ben was referred for personality testing secondary to concerns regarding possible bipolar condition. TESTS ADMINISTERED: Ben completed the [place] Multiphasic Personality Inventory-2 (MMPI-2) and was given feedback in an individual conversation regarding testing results. RELEVANT HISTORY: Ben had presented himself for evaluation at the hospital as a voluntary patient secondary to recommendation of his outpatient psychiatrist, Dr. Carter in [place]. Ben currently lives in [place], [place] , after having moved there from [facility]. He describes moving to [facility], to be with family after his mother had moved. 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 Ben describes some difficulties in adjusting to [facility] as he describes [place] near [place]. Ben had been having very intrusive difficulties with insomnia describing not having slept at all for 5 days or nights prior to his outpatient visit with his psychiatrist. She referred him here for evaluation and treatment secondary to concerns regarding possible leona. However, Ben disclosed having suicidal rumination in the past several days, although, he denied intent or having formulated a plan to act on such thoughts. He did not present with any symptoms of leona other than poor sleep, reliably denying difficulties with pressured speech, grandiose thoughts, or any kind of delusional thought content. He also denied engaging in any reckless behaviors that often are characteristic of leona, but instead describes major depressive symptoms quite reliably coupled with intrusive levels of anxiety. Ben displayed fair affect, making good eye contact, and was able to discuss relevant history in a spontaneous and open fashion. He has been participatory in group programming and expressing positive insights regarding content discussed. He relates to conversation regarding awareness of depressive symptomatology and finds such conversation relatable. He has not displayed any manic behaviors while here and to the contrary has been able to sleep better with compliance with the recommended medications. He has interacted with staff and peers in a cooperative and empathic fashion and has expressed relief from intrusive symptoms. TEST RESULTS: Ben provides a valid protocol despite 2 mild elevations on emotional distress scales (FB=80). This is descriptive of a person who has endorsed some difficulties with cynical and pessimistic thoughts and beliefs. He subsequently elevates the neurotic triad in a moderate fashion with T scores being between 80 and 95, with a depression T score equal to 90. He also elevates the anxiety index to a lesser degree (T=75), but more tellingly, he has a very score occurring on hypomania scale (T=38). Persons with such a low score on the hypomania scale are often described as experiencing vegetative symptoms of depression which is felt to be consistent with Ben's report of problems with sleep particularly. Also suicidal rumination can be present with persons scoring in this range, especially when coupled with a very high elevation on the depression scale as Ben has here. Feedback with Ben emphasized the concepts related to the neurotic triad which include utilization of repression as a primary emotional coping mechanism. He was encouraged to be more forthright in conversation with discussion of thoughts and feelings with appropriate people and to find out the means of expression. He found the conversation regarding increased difficulties with physical symptoms quite relatable and was appreciative of feedback. IMPRESSIONS AND RECOMMENDATIONS: Ben impresses as being a good candidate for insight oriented psychotherapy as well as continued compliance with recommended medications. Concerns regarding possible leona or hypomania were not confirmed either in his presentation or in test results. Instead difficulties with major depressive disorder were discussed in the context of his move to [facility] as he describes difficulties with social and emotional adjustment. He is able to express positive prosocial goals currently and impresses as likely a follow-through with his hopes of returning to college in the near future. Diagnostic impression supports major depressive disorder, severe without psychosis. He also discusses historical difficulties with threats and symptoms. Concerns regarding elona were not supported currently, which should continue to be ruled out in ongoing psychotherapy. [id number] #: [id number]
== END 2018-09-25 13:00 | disposition home or self-care (01) | DRG 751 ==
LOC: ED 10:52 → BSU 15:53
PROVIDERS: ADMIT Psychiatry & Neurology Psychiatry; ATTEND Psychiatry & Neurology Psychiatry
DX: F33.2 Major depressive disorder, recurrent severe without psychotic features (principal); R45.851 Suicidal ideations; F90.9 Attention-deficit hyperactivity disorder, unspecified type; F95.2 Tourette's disorder; Z81.8 Family history of other mental and behavioral disorders; Z81.3 Family history of other psychoactive substance abuse and dependence; Z79.899 Other long term (current) drug therapy
CPT/HCPCS: 36415; 80053; 80061; 80307; 80320; 80329; 81003; 83036; 84443; 85025; 90686; 90853; 93005; 99222; 99232; 99233; 99284; A9270-GY; G0480